=== PATIENT | male | born 1980 | race Hispanic/Latino ===

== ENCOUNTER 2019-12-12 14:09 | Inpatient (IN) | payer SELFPAY ==
[~2019-12-12] VITALS: Ht 165.1 cm; Wt 78.8 kg
[2019-12-12] MEDS ORDERED: ONDANSETRON HCL 4 MG/2 ML VIAL ONE (14:24)
[2019-12-12] MEDS ORDERED: KETOROLAC TROMETHAMINE 30MG/ML ONE (14:25)
[2019-12-12 14:50] LABS: BASOPHILS % (AUTO) 0.2 % (0.0-5.0); HEMATOCRIT 47.5 % (42-54); LYMPHOCYTES % (AUTO) 10.5 % (21.0-51.0); MEAN CORPUSCULAR VOLUME 88.8 fL (79-99); MONOCYTES % (AUTO) 4.5 % (3.0-13.0); NEUTROPHILS % (AUTO) 84.2 % (40.0-77.0); PLATELET COUNT (AUTO) 232 K/uL (130-400); RED BLOOD CELL COUNT(AUTO) 5.35 MIL/uL (4.50-6.20); RED CELL DISTRIBUTION WIDTH 12.4 % (11.0-15.5); WHITE BLOOD COUNT (AUTO) 14.5 K/uL (4.8-10.8)
[2019-12-12 14:59] LABS: POTASSIUM 4.5 mmol/L (3.5-5.1)
[2019-12-12 15:04] LABS: ALBUMIN 4.1 g/dL (3.5-5.0); BILIRUBIN,TOTAL 0.7 mg/dL (0.2-1.0); TOTAL PROTEIN, SERUM 8.1 g/dL (6.0-8.3)
[2019-12-12 15:22] LABS: APPEARANCE,URINE Clear (CLEAR); BILIRUBIN,URINE Negative (NEGATIVE); COLOR,URINE Yellow (YELLOW); GLUCOSE, URINE (UA) Negative (NEGATIVE); KETONES,URINE Negative (NEGATIVE); LEUKOCYTE ESTERASE ,URINE Trace (NEGATIVE); NITRATE,URINE Negative (NEGATIVE); OCCULT BLOOD,URINE Trace (NEGATIVE); PH,URINE >=9.0 (5.0-8.0); PROTEIN,URINE POS 1+ mg/dL (NEGATIVE)
[2019-12-12 15:42] LABS: BACTERIA,URINE Few /HPF (None Seen); MUCUS,URINE Few LPF (None Seen); SQUAMOUS EPITHELIAL CELL,UR Rare /HPF (0-2)
[2019-12-12] MEDS ORDERED: ONDANSETRON HCL 4 MG/2 ML VIAL IVP PRN (16:15)
[2019-12-12] MEDS: ZOSYN 3.375GM+NS 50ML 50 ML IV SCH (16:15)
[2019-12-12] MEDS ORDERED: ACETAMINOPHEN 325 MG TAB PO PRN (16:15)
[2019-12-12] MEDS: SODIUM CHLORIDE 0.9% 1000ML 1,000 ML IV SCH (16:15)
[2019-12-12] MEDS ORDERED: ZOSYN 3.375GM+NS 50ML 50 ML IV ONE (16:18)
[2019-12-12] MEDS ORDERED: SODIUM CHLORIDE 0.9% 1000ML 1,000 ML IV ONE (18:07)
[2019-12-12] MEDS: FAMOTIDINE/PF 20 MG/2 ML VIAL IV SCH (21:00)
[2019-12-12 22:45] VITALS: BP 118/83
[2019-12-13] MEDS: ZOSYN 3.375GM+NS 50ML 50 ML IV SCH ×3 (00:53→16:18)
[2019-12-13 04:00] VITALS: BP 104/72
[2019-12-13] MEDS: SODIUM CHLORIDE 0.9% 1000ML 1,000 ML IV SCH ×3 (04:45→23:18)
[2019-12-13 07:55] VITALS: BP 107/72
[2019-12-13] MEDS: FAMOTIDINE/PF 20 MG/2 ML VIAL IV SCH ×2 (09:17→19:58)
[2019-12-13 11:02] VITALS: BP 106/71
[2019-12-13 16:47] VITALS: BP 111/70
[2019-12-13 19:00] VITALS: BP 149/74
--- NOTE | 2019-12-13 19:37 | NUR ---
cm note met with patient, independent with ambulation and adls. no dme. no home services. dc plan is home. community resource packet given, rx assist coupon. pt verbalizes understanding. Addendum: 12/13/19 at 1938 by ALICIA SANCHEZ CM Amended: Links added.
[2019-12-13] MEDS: MORPHINE SULFATE 2 MG/ML 1ML SYG IVP PRN (19:59)
[2019-12-13 23:39] VITALS: BP 116/65
[2019-12-14] MEDS: ZOSYN 3.375GM+NS 50ML 50 ML IV SCH ×3 (00:27→17:44)
[2019-12-14 03:57] VITALS: BP 97/60
[2019-12-14 04:59] LABS: BASOPHILS % (AUTO) 0.3 % (0.0-5.0); EOSINOPHILS % (AUTO) 1.3 % (0.0-8.0); LYMPHOCYTES % (AUTO) 39.4 % (21.0-51.0); MEAN CORPUSCULAR HEMOGLOBIN 31.4 pg (27.0-33.0); MEAN CORPUSCULAR HGB CONC 34.8 g/dL (32.0-36.0); MEAN CORPUSCULAR VOLUME 90.2 fL (79-99); MONOCYTES % (AUTO) 6.2 % (3.0-13.0); PLATELET COUNT (AUTO) 188 K/uL (130-400); RED CELL DISTRIBUTION WIDTH 12.4 % (11.0-15.5); WHITE BLOOD COUNT (AUTO) 6.3 K/uL (4.8-10.8)
[2019-12-14 05:19] LABS: CREATININE 1.2 mg/dL (0.5-1.5); POTASSIUM 4.2 mmol/L (3.5-5.1)
[2019-12-14 08:12] VITALS: BP 102/70
[2019-12-14 08:35] LABS: ALBUMIN 3.2 g/dL (3.5-5.0); BILIRUBIN,DIRECT 0.2 mg/dL (0.0-0.3); BILIRUBIN,TOTAL 0.7 mg/dL (0.2-1.0); TOTAL PROTEIN, SERUM 6.9 g/dL (6.0-8.3)
[2019-12-14] MEDS: FAMOTIDINE/PF 20 MG/2 ML VIAL IV SCH ×2 (09:03→20:44)
[2019-12-14] MEDS: SODIUM CHLORIDE 0.9% 1000ML 1,000 ML IV SCH ×2 (09:04→18:37)
[2019-12-14 12:00] VITALS: BP 104/69
[2019-12-14 18:43] VITALS: BP 108/65
[2019-12-14 19:51] VITALS: BP 107/71
--- NOTE | 2019-12-14 20:45 | NUR ---
MEDS SHIFT ASSESSMENT DONE, PLEASE REFER TO CHART. DUE MEDS ADMINISTERED, TOLERATED WELL. INSTRUCTED TO BE NPO POST MN. PT VERBALIZES UNDERSTANDING. KEPT COMFORTABLE IN BED. CALL LIGHT WITHIN REACH. Addendum: 12/15/19 at 0112 by HARI SUMMERS RN RN Amended: Links added.
[2019-12-14 23:51] VITALS: BP 98/67
[2019-12-15] VITALS (20 sets, daily range): BP systolic 103–172; BP diastolic 63–90
[2019-12-15] MEDS: ZOSYN 3.375GM+NS 50ML 50 ML IV SCH ×4 (00:02→16:15)
[2019-12-15] MEDS: SODIUM CHLORIDE 0.9% 1000ML 1,000 ML IV SCH ×3 (00:03→11:14)
--- NOTE | 2019-12-15 02:00 | NUR ---
ROUNDS PT RESTING WELL, FAIRLY ASLEEP. NO DISTRESS NOTED. KEPT RESTED AND COMFORTABLE. CALL LIGHT WITHIN REACH. KEPT NPO. WILL CONTINUE TO MONITOR.
[2019-12-15] MEDS: KETOROLAC TROMETHAMINE 15MG/ML IV PRN ×2 (05:46→18:21)
--- NOTE | 2019-12-15 05:46 | NUR ---
PAIN PT CLAIMS OF ABDOMINAL PAINS. MEDICATED WITH TORADOL IV. KEPT NPO. WILL RE-ASSESS PT. FOR MORE CARE.
[2019-12-15 06:11] LABS: ALBUMIN 3.2 g/dL (3.5-5.0); BILIRUBIN,TOTAL 0.8 mg/dL (0.2-1.0); TOTAL PROTEIN, SERUM 6.7 g/dL (6.0-8.3)
--- NOTE | 2019-12-15 08:15 | NUR ---
CALL TRIED TO PAGE DR CARL BUT ANSWERING SERVICE TO VERIFY SX ORDERS BUT PRINCIPAL CLERK TYPIST WAS GIVEN MD NUMBER INSTEAD TO CALL. CALLED DR CARL'S NUMBER BUT BUSY SIGNAL. PAGED DR FISCHER VIA ANSWERING SERVICE, AWAITING CALL BACK.
--- NOTE | 2019-12-15 08:39 | NUR ---
DR MESERET RUSSO'S PA, CALLED AND NEW ORDERS GIVEN, PLEASE REFER TO CPOE.
[2019-12-15] MEDS: FAMOTIDINE/PF 20 MG/2 ML VIAL IV SCH ×2 (09:21→21:23)
--- NOTE | 2019-12-15 15:04 | NUR ---
to holding area via his bed Addendum: 12/15/19 at 1522 by MICHELA RAM RN Amended: Links added.
[2019-12-15] MEDS ORDERED: BUPIVACAINE/PF 0.5% 10ML VIAL ONE (15:51)
[2019-12-15] MEDS ORDERED: SUCCINYLCHOLINE 200MG/10ML SYR ONE (15:52)
[2019-12-15] MEDS ORDERED: LIDOCAINE PF 2% 5ML ABBOJECT ONE (15:52)
[2019-12-15] MEDS ORDERED: ROCURONIUM 10MG/1ML SYR 10 MG/ML ML ONE (15:52)
[2019-12-15] MEDS ORDERED: PROPOFOL 10 MG/ML 20ML VIAL IV ONE (15:52)
[2019-12-15] MEDS ORDERED: MIDAZOLAM HCL 1 MG/ML 2ML VIAL ONE (15:52)
[2019-12-15] MEDS ORDERED: FENTANYL CITRATE PF 50 MCG/1 ML 2ML VIAL ONE ×2 (15:53→16:43)
[2019-12-15] MEDS ORDERED: ONDANSETRON HCL 4 MG/2 ML VIAL ONE (16:14)
[2019-12-15] MEDS ORDERED: GLYCOPYRROLATE 1 MG/5 ML SYRINGE ONE (16:46)
[2019-12-15] MEDS ORDERED: NEOSTIGMINE 5MG/5ML SYR IV ONE (16:46)
[2019-12-15] MEDS ORDERED: MEPERIDINE-PF 25 MG/ML SYG ONE ×2 (17:27→17:59)
--- NOTE | 2019-12-15 18:05 | NUR ---
Took over report at 1805, pt stable , no concerns voiced.
[2019-12-15] MEDS ORDERED: KETOROLAC TROMETHAMINE 30MG/ML IV SCH (18:15)
--- NOTE | 2019-12-15 18:30 | NUR ---
received pt from PACU via her bed, bandaids x4 to abdomen dry and intact Addendum: 12/15/19 at 1843 by MICHELA RAM RN Amended: Links added.
[2019-12-15] MEDS ORDERED: ACETAMINOPHEN-CODEINE 300/30MG TAB PO PRN (19:00)
[2019-12-16] MEDS: ZOSYN 3.375GM+NS 50ML 50 ML IV SCH ×2 (00:23→08:54)
[2019-12-16] MEDS: MORPHINE SULFATE 2 MG/ML 1ML SYG IVP PRN (00:32)
[2019-12-16 00:33] VITALS: BP 140/84
[2019-12-16] MEDS: SODIUM CHLORIDE 0.9% 1000ML 1,000 ML IV SCH ×2 (01:23→13:00)
[2019-12-16 04:20] LABS: HEMATOCRIT 45.4 % (42-54); MEAN CORPUSCULAR HEMOGLOBIN 31.3 pg (27.0-33.0); MEAN CORPUSCULAR HGB CONC 35.7 g/dL (32.0-36.0); MEAN CORPUSCULAR VOLUME 87.8 fL (79-99); RED BLOOD CELL COUNT(AUTO) 5.17 MIL/uL (4.50-6.20); RED CELL DISTRIBUTION WIDTH 11.9 % (11.0-15.5); WHITE BLOOD COUNT (AUTO) 11.5 K/uL (4.8-10.8)
[2019-12-16 04:41] LABS: CREATININE 0.9 mg/dL (0.5-1.5)
[2019-12-16 04:52] VITALS: BP 125/72
[2019-12-16 08:00] VITALS: BP 133/91
[2019-12-16] MEDS: FAMOTIDINE/PF 20 MG/2 ML VIAL IV SCH (08:54)
[2019-12-16 08:59] LABS: ALBUMIN 3.5 g/dL (3.5-5.0); BILIRUBIN,DIRECT 0.3 mg/dL (0.0-0.3); TOTAL PROTEIN, SERUM 7.2 g/dL (6.0-8.3)
--- NOTE | 2019-12-16 09:47 | NUR ---
SEVERINO OLMEDO NP ROUNDED WITH PT CLEARED PT FROM SX STANDPOINT. PER SEVERINO PT IS CLEARED ONCE PT TOLERATES DIET AFTER LUNCH. PT IS INSTRUCTED TO FOLLOW UP WITH DR CARL IN 2 WEEKS. PT STATES UNDERSTANDING.
[2019-12-16 12:00] VITALS: BP 125/73
[2019-12-16] MEDS: KETOROLAC TROMETHAMINE 15MG/ML IV PRN (14:27)
[2019-12-16 16:00] VITALS: BP 111/66
--- NOTE | 2019-12-16 20:33 | NUR ---
DISCHARGE: PER MD ORDERS PT WAS DC'D HOME. IV REMOVED, TIP INTACT. DISCHARGE INSTRUCTIONS GIVEN TO PT. PT WAS INSTRUCTED TO FOLLOW LOW FAT, LOW SPICE DIET RECOMMENDED BY MD AND TO FOLLOW UP WITH DR CARL IN 2 WEEKS. PT WAS PROVIDED WITH AN APPT DATE AND NUMBER TO OFFICE. NEW PRESCRIPTION WAS OF TYLENOL-CODEINE WAS EXPLAINED TO PT, SCRIPT PLACED IN DISCHARGE FOLDER. EXIT CARE EDUCATION WAS PROVIDED TO PT ON AFTER CARE OF LAP-RED, CRISTY, INCISION CARE, AND ON PRESCRIBED MEDICATIONS. PT STATED UNDERSTANDING AND NO QUESTIONS. PT WAS INSTRUCTED TO CALL OFFICE SOONER FOR ANY CONCERNS OR TO GO TO NEAREST ER OR CALL 911 IN CASE OF AN EMERGENCY. PT STATED UNDERSTANDING.
== END 2019-12-16 17:30 | disposition home or self-care (01) | DRG 418 ==
LOC: EDH 14:09 → EDHIP 14:10 → 3DH 22:02
PROVIDERS: ADMIT Hospitalist; ATTEND Hospitalist
PROC: 0FT44ZZ Resection of Gallbladder, Percutaneous Endoscopic Approach (ICD-10-PCS; principal; 2019-12-15 16:16)
DX: K80.00 Calculus of gallbladder with acute cholecystitis without obstruction (principal); N39.0 Urinary tract infection, site not specified; Q44.1 Other congenital malformations of gallbladder; I10 Essential (primary) hypertension; Z20.828 Contact with and (suspected) exposure to other viral communicable diseases
CPT/HCPCS: 36415; 76705; 78226; 80048; 80053; 80076; 81001; 83690; 83735; 85025; 85027; 87426; A9537; G0378; J0330; J1885; J2001; J2175; J2250; J2405; J2543; J2704; J2710; J3010; J3490; J7030; J7120